=== PATIENT | male | born 1960 | race Caucasian/White ===

== ENCOUNTER 2017-10-02 18:42 | Inpatient (IN) | payer OTHER ==
[~2017-10-02] VITALS: Ht 198.1 cm; Wt 103.6 kg
--- NOTE | ~2017-10-02 | WRIGHTHP ---
[place], [place] PATIENT HISTORY AND PHYSICAL EXAM NAME: LISSA HIGGINS [facility] #: [id number] UNIT #: [id number] ROOM: 421 DOCTOR: MEGAN LAMB MD BIRTHDATE: [birth year] DOS: 10/02/2017 HISTORY OF PRESENT ILLNESS: The patient is 57 years old; patient of Dr. Ovalles, comes in to the Emergency Room with complaints of headaches. The patient was seen in the Emergency Room, was found to have quite elevated blood pressure readings and so was admitted to the hospital. He denies having any chest pains, palpitations, does not have any fever, chills, has not had any headaches, dizziness or lightheadedness this morning. Denies having any abdominal pain, nausea and emesis. He has been taking his blood pressure medications regularly. His only complaint is that he has continued back pain this morning. The patient states that he bent over a few days ago and tried to straighten up and developed acute worsening of his pain and he thinks that his blood pressure was elevated because of the pain. PAST MEDICAL HISTORY: Significant for: 1. Hypertension. 2. Moderate nicotine abuse. 3. Chronic low back pain. 4. Lumbar laminectomy for degenerative spinal stenosis. MEDICATIONS: He is on are vitamin D 2000 units daily, Greeley 7.5 q.i.d., Requip 1 mg at bedtime, lisinopril and hydrochlorothiazide 1 tablet twice a day. SOCIAL HISTORY: Smoker of about half to 1 pack of cigarettes a day. Denies using any alcohol. Lives at home. PHYSICAL EXAMINATION: GENERAL: He is awake and alert and oriented, uncomfortable because of back pain. VITAL SIGNS: Blood pressure is 160/90, pulse of 70, respirations 20, temperature 97.6. LUNGS: Clear. HEART: Regular. ABDOMEN: Obese, soft, nontender. EXTREMITIES: Without any edema. He is able to ambulate without any problems. LABORATORY DATA: White cell count is normal, hemoglobin and hematocrit normal, platelets normal. Comprehensive: Glucose 180, BUN 29, creatinine 1.48, sodium 137, potassium 4.3. Chest x-ray shows atelectasis. ASSESSMENT AND PLAN: 1. The patient comes in with complaints of headaches, was found to have elevated blood pressure in the Emergency Room, uncontrolled hypertension was noted. The patient was admitted. Amlodipine was added to home medicines, pressure is much improved this morning. 2. Chronic low back pain. Continue Greeley, add gabapentin for neurogenic claudication. 3. Moderate nicotine abuse, advised against smoking. [place], [place] PATIENT HISTORY AND PHYSICAL EXAM NAME: LISSA HIGGINS UNIT #: [id number] ROOM: 421 DOCTOR: MEGAN LAMB MD BIRTHDATE: [birth year] 4. History of dizziness. The patient would benefit from a carotid Doppler. Unfortunately, we cannot do one here because it is the weekend and they do not do a Doppler on a weekend. The patient's CT scan of the head was negative. 5. Chest x-ray showing atelectasis, but the patient clinically does not have any complaints of cough and shortness of breath, would benefit from a CT of the chest as an outpatient because he is a heavy smoker. 6. Elevated blood sugar readings are noted. The patient needs to have hemoglobin A1c before he goes home and if it is high, we need to consider him as a new onset diabetic and undergo treatment. MEGAN LAMB MD CM:HISPHYS:PATIENT HISTORY AND PHYSICAL EXAMINATION 6 4 MEGAN LAMB MD 10/03/1746 interface
[~2017-10-02 18:42] MED LIST: AUGMENTIN 875 M1 TA1 PO; BROMFED DM COU118 M1 PO; CATAFLAM50 MG PO; CIPROFLOXACIN500 MG PO; CLONIDINE0.1 MG; CYCLOBENZAPRINE10 MG PO; FLEXERIL5 MG PO; HYDROCODONE BIT1 T11 PO; LISINOPRIL/HCTZ1 TA3 PO; MEDROL DOSEPAK4 MG PO; NORFLEX100 MG PO; ORPHENADRINE C100 M1 PO; PERCOCET 325 MG1 TA7 PO; PRAVACHOL40 MG PO; PREDNISONE10 MG PO; ROBAXIN750 MG PO; SYMBICORT1 AE1 IH; VICO75300 PO
[2017-10-02 18:45] VITALS: BP 178/115
[2017-10-02 19:00] VITALS: BP 200/100
[2017-10-02 19:33] LABS: BASO # 0.1 10*3/uL (0.0-0.1); BASO % 1.3 % (0.0-1.0); EOS # 0.2 10*3/uL (0.0-0.4); EOS % 1.6 % (1.0-4.0); HEMATOCRIT 50.6 % (42.0-52.0); LYMPH # 2.3 10*3/uL (1.3-4.4); LYMPH % 21.6 % (27.0-41.0); MEAN CELL VOLUME 88.2 fl (80.0-94.0); MEAN CORPUSCULAR HGB 29.6 pg (27.0-31.0); MEAN CORPUSCULAR HGB CONC 33.6 g/dl (33.0-37.0); MEAN PLATELET VOLUME 9.9 fl (9.6-12.3); MONO # 0.7 10*3/uL (0.1-1.0); MONO % 6.8 % (3.0-9.0); NEUT # 7.1 10*3/uL (2.3-7.9); NEUT % 67.6 % (47.0-73.0); PLATELET COUNT AUTOMATED 275 10*3/uL (130-400); RED BLOOD COUNT 5.74 10*6/uL (4.50-5.90); RED CELL DISTRI WIDTH 15.9 % (0-14.5); WHITE BLOOD COUNT 10.5 10*3/uL (4.8-10.8)
[2017-10-02 19:40] VITALS: BP 142/90
[2017-10-02 19:50] LABS: ALBUMIN 3.8 gm/dl (3.1-4.5); ALKALINE PHOSPHATASE 111 U/L (45-117); BUN 29 mg/dl (7-24); CHLORIDE 103 mmol/L (98-107); CREATININE 1.48 mg/dL (0.70-1.30); POTASSIUM 4.3 mmol/L (3.5-5.1); SGOT/AST 34 IU/L (3-35); SGPT/ALT 50 U/L (12-78); SODIUM 137 mmol/L (136-145); TOTAL PROTEIN 7.3 gm/dL (6.4-8.2)
[2017-10-02 19:51] LABS: TROPONIN I < 0.015 ng/ml (<0.045)
[2017-10-02 21:59] LABS: BILIRUBIN NEGATIVE (NEGATIVE); BLOOD NEGATIVE (NEGATIVE); CLARITY CLEAR (CLEAR); COLOR YELLOW (YELLOW); GLUCOSE NEGATIVE (NEGATIVE); KETONE NEGATIVE (NEGATIVE); LEUKO ESTERASE NEGATIVE (NEGATIVE); NITRITE NEGATIVE (NEGATIVE); PH 5.5 (5.0-9.0); SPECIFIC GRAVITY 1.025 (1.005-1.030); UROBILINOGEN 0.2 E.U./dl (0.2-1.0)
[2017-10-02 22:07] LABS: BACTERIA TRACE; EPITHELIAL CELLS 0-2; MUCOUS 1+; RBC 0-2 rbc/hpf (0-2)
[2017-10-02 22:10] LABS: URINE AMPHETAMINES < 1000 (1000ng/ml); URINE BARBITURATES < 200 (200ng/ml); URINE BENZODIAZEPINES < 200 (200ng/ml); URINE CANNABINOIDS (THC) < 50 (50ng/ml); URINE COCAINE < 300 (300ng/ml); URINE METHADONE < 300 (300ng/ml); URINE OPIATES > 300 (300ng/ml)
[2017-10-02 22:11] LABS: URINE PHENCYCLIDINE < 25 (25ng/ml)
[2017-10-02 22:27] VITALS: BP 169/103
[2017-10-02 22:30] VITALS: BP 162/98
[2017-10-02] MEDS ORDERED: ROPINIROLE HYDRO1 MG PO (23:05)
[2017-10-02] MEDS ORDERED: VITAMIN D-32000 UNI1 PO (23:05)
[2017-10-03] MEDS ORDERED: NORCO 7.5-3251 EACH PO (00:39)
[2017-10-03] MEDS ORDERED: VITAMIN D32000 UNI1 PO (00:44)
[2017-10-03] MEDS ORDERED: GABAPENTIN100 M2 PO (08:48)
[2017-10-03] MEDS ORDERED: AMLODIPINE BESYL5 MG PO (08:48)
== END 2017-10-03 10:13 | disposition home or self-care (01) | DRG 639 ==
LOC: ED 18:42 → EDHOLD 21:34 → 4E 21:46
PROVIDERS: Emergency Medicine Emergency Medical Services; ADMIT Internal Medicine
DX: E11.65 Type 2 diabetes mellitus with hyperglycemia (principal); F17.210 Nicotine dependence, cigarettes, uncomplicated; I10 Essential (primary) hypertension; G89.29 Other chronic pain; M54.5 Low back pain; Z71.6 Tobacco abuse counseling

== ENCOUNTER 2018-01-17 18:20 | Emergency (ER) | payer OTHER ==
[~2018-01-17] VITALS: Ht 198.1 cm; Wt 100.2 kg
[~2018-01-17 18:20] MED LIST changes: +AMLODIPINE BESYL5 MG PO; +GABAPENTIN100 M2 PO; +NORCO 7.5-3251 EACH PO; +ROPINIROLE HYDRO1 MG PO; +VITAMIN D-32000 UNI1 PO; +VITAMIN D32000 UNI1 PO
[2018-01-17 18:24] VITALS: BP 116/96
[2018-01-17 19:16] LABS: BASO # 0.2 10*3/uL (0.0-0.1); BASO % 1.5 % (0.0-1.0); EOS # 0.1 10*3/uL (0.0-0.4); EOS % 0.8 % (1.0-4.0); HEMATOCRIT 54.5 % (42.0-52.0); HEMOGLOBIN 18.6 g/dl (14.0-18.0); LYMPH # 2.4 10*3/uL (1.3-4.4); LYMPH % 20.6 % (27.0-41.0); MEAN CELL VOLUME 87.2 fl (80.0-94.0); MEAN CORPUSCULAR HGB 29.8 pg (27.0-31.0); MEAN CORPUSCULAR HGB CONC 34.1 g/dl (33.0-37.0); MONO % 8.5 % (3.0-9.0); NEUT # 7.7 10*3/uL (2.3-7.9); NEUT % 66.1 % (47.0-73.0); PLATELET COUNT AUTOMATED 285 10*3/uL (130-400); RED BLOOD COUNT 6.25 10*6/uL (4.50-5.90); RED CELL DISTRI WIDTH 16.9 % (0-14.5); WHITE BLOOD COUNT 11.7 10*3/uL (4.8-10.8)
[2018-01-17 19:26] LABS: ACT PARTIAL THROMBO TIME 25.5 SECONDS (20.8-31.5)
[2018-01-17 19:31] LABS: CREATININE 1.5 mg/dL (0.70-1.30); POTASSIUM 3.7 mmol/L (3.5-5.1); TOTAL PROTEIN 7.6 gm/dL (6.4-8.2)
== END 2018-01-17 20:04 | disposition short-term general hospital (02) ==
LOC: ED 18:20
PROVIDERS: Nurse Practitioner Family
DX: M62.262 Nontraumatic ischemic infarction of muscle, left lower leg (principal); I16.1 Hypertensive emergency; F17.200 Nicotine dependence, unspecified, uncomplicated; Z79.899 Other long term (current) drug therapy

== ENCOUNTER 2018-02-03 11:35 | Emergency (ER) | payer OTHER ==
[~2018-02-03] VITALS: Ht 198.1 cm; Wt 100.2 kg
[2018-02-03 12:24] LABS: BASO # 0.2 10*3/uL (0.0-0.1); BASO % 1.6 % (0.0-1.0); EOS # 0.2 10*3/uL (0.0-0.4); EOS % 1.7 % (1.0-4.0); HEMATOCRIT 41.9 % (42.0-52.0); HEMOGLOBIN 14.1 g/dl (14.0-18.0); LYMPH # 2.3 10*3/uL (1.3-4.4); LYMPH % 18.2 % (27.0-41.0); MEAN CORPUSCULAR HGB 29.9 pg (27.0-31.0); MEAN CORPUSCULAR HGB CONC 33.7 g/dl (33.0-37.0); MEAN PLATELET VOLUME 9.6 fl (9.6-12.3); MONO % 8.2 % (3.0-9.0); NEUT # 8.6 10*3/uL (2.3-7.9); NEUT % 68.4 % (47.0-73.0); PLATELET COUNT AUTOMATED 493 10*3/uL (130-400); RED BLOOD COUNT 4.71 10*6/uL (4.50-5.90); RED CELL DISTRI WIDTH 15.4 % (0-14.5); WHITE BLOOD COUNT 12.5 10*3/uL (4.8-10.8)
[2018-02-03 12:32] LABS: ACT PARTIAL THROMBO TIME 27.7 SECONDS (20.8-31.5); INTERNATIONAL NORM RATIO 1.3 (2.0-3.5)
[2018-02-03 12:35] VITALS: BP 136/70
[2018-02-03 12:40] LABS: ALBUMIN 3.6 gm/dl (3.1-4.5); ALKALINE PHOSPHATASE 114 U/L (45-117); BUN 17 mg/dl (7-24); CHLORIDE 100 mmol/L (98-107); CREATININE 1.32 mg/dL (0.70-1.30); POTASSIUM 4.8 mmol/L (3.5-5.1); SGOT/AST 27 IU/L (3-35); SGPT/ALT 34 U/L (12-78); SODIUM 135 mmol/L (136-145); TOTAL PROTEIN 7.7 gm/dL (6.4-8.2)
[2018-02-03 12:42] LABS: TROPONIN I < 0.015 ng/ml (<0.045)
== END 2018-02-03 13:32 | disposition short-term general hospital (02) ==
LOC: ED 11:35
PROVIDERS: Physician Assistant
DX: M79.672 Pain in left foot (principal); Z79.899 Other long term (current) drug therapy

== ENCOUNTER 2018-04-11 11:50 | Emergency (ER) | payer OTHER ==
[~2018-04-11] VITALS: Ht 198.1 cm; Wt 95.3 kg
[2018-04-11 12:12] LABS: BASO # 0.2 10*3/uL (0.0-0.1); EOS # 0.1 10*3/uL (0.0-0.4); EOS % 0.5 % (1.0-4.0); HEMATOCRIT 50.9 % (42.0-52.0); HEMOGLOBIN 16.5 g/dl (14.0-18.0); LYMPH # 2.2 10*3/uL (1.3-4.4); MEAN CELL VOLUME 84.4 fl (80.0-94.0); MEAN CORPUSCULAR HGB 27.4 pg (27.0-31.0); MEAN CORPUSCULAR HGB CONC 32.4 g/dl (33.0-37.0); MEAN PLATELET VOLUME 9.5 fl (9.6-12.3); MONO # 1.1 10*3/uL (0.1-1.0); MONO % 7.2 % (3.0-9.0); NEUT % 75.3 % (47.0-73.0); PLATELET COUNT AUTOMATED 302 10*3/uL (130-400); RED BLOOD COUNT 6.03 10*6/uL (4.50-5.90); RED CELL DISTRI WIDTH 15.9 % (0-14.5); WHITE BLOOD COUNT 14.6 10*3/uL (4.8-10.8)
[2018-04-11 12:21] LABS: ACT PARTIAL THROMBO TIME 23.7 SECONDS (20.8-31.5); INTERNATIONAL NORM RATIO 0.9 (2.0-3.5)
[2018-04-11 12:28] LABS: ALBUMIN 4.2 gm/dl (3.1-4.5); ALKALINE PHOSPHATASE 143 U/L (45-117); BUN 23 mg/dl (7-24); CHLORIDE 102 mmol/L (98-107); CREATININE 1.21 mg/dL (0.70-1.30); LIPASE 190 U/L (73-393); POTASSIUM 4.4 mmol/L (3.5-5.1); SGOT/AST 24 IU/L (3-35); SGPT/ALT 59 U/L (12-78); SODIUM 136 mmol/L (136-145); TOTAL PROTEIN 8.1 gm/dL (6.4-8.2)
[2018-04-11 12:29] LABS: TROPONIN I < 0.015 ng/ml (<0.045)
[2018-04-11 17:25] VITALS: BP 145/85
== END 2018-04-11 17:43 | disposition short-term general hospital (02) ==
LOC: ED 11:50
PROVIDERS: Emergency Medicine
DX: M62.261 Nontraumatic ischemic infarction of muscle, right lower leg (principal); I74.3 Embolism and thrombosis of arteries of the lower extremities; Z79.899 Other long term (current) drug therapy

== ENCOUNTER → 2018-05-06 | Outpatient (CLI) | payer OTHER | END | disposition home or self-care (01) | LOC: WOUNDCARE 10:19 | DX: T81.89XD Other complications of procedures, not elsewhere classified, subsequent encounter (principal); E11.621 Type 2 diabetes mellitus with foot ulcer; L97.512 Non-pressure chronic ulcer of other part of right foot with fat layer exposed; E11.51 Type 2 diabetes mellitus with diabetic peripheral angiopathy without gangrene; Z87.891 Personal history of nicotine dependence; Z96.651 Presence of right artificial knee joint; Z89.612 Acquired absence of left leg above knee; Y83.8 Other surgical procedures as the cause of abnormal reaction of the patient, or of later complication, without mention of misadventure at the time of the procedure ==

== ENCOUNTER 2018-05-11 15:25 | Emergency (ER) | payer OTHER ==
[~2018-05-11] VITALS: Ht 177.8 cm; Wt 77.1 kg
[2018-05-11 17:02] LABS: BASO # 0.2 10*3/uL (0.0-0.1); BASO % 1.1 % (0.0-1.0); EOS # 0.1 10*3/uL (0.0-0.4); EOS % 0.7 % (1.0-4.0); HEMATOCRIT 48.7 % (42.0-52.0); HEMOGLOBIN 15.5 g/dl (14.0-18.0); LYMPH # 2.8 10*3/uL (1.3-4.4); LYMPH % 18.2 % (27.0-41.0); MEAN CELL VOLUME 83.4 fl (80.0-94.0); MEAN CORPUSCULAR HGB 26.5 pg (27.0-31.0); MEAN CORPUSCULAR HGB CONC 31.8 g/dl (33.0-37.0); MEAN PLATELET VOLUME 9.7 fl (9.6-12.3); MONO # 1.2 10*3/uL (0.1-1.0); MONO % 7.5 % (3.0-9.0); NEUT # 10.8 10*3/uL (2.3-7.9); NEUT % 70.6 % (47.0-73.0); PLATELET COUNT AUTOMATED 409 10*3/uL (130-400); RED BLOOD COUNT 5.84 10*6/uL (4.50-5.90); RED CELL DISTRI WIDTH 18.4 % (0-14.5); WHITE BLOOD COUNT 15.4 10*3/uL (4.8-10.8)
[2018-05-11 17:11] LABS: ACT PARTIAL THROMBO TIME 32.3 SECONDS (20.8-31.5); INTERNATIONAL NORM RATIO 1.7 (2.0-3.5)
[2018-05-11 17:16] LABS: ALBUMIN 3.9 gm/dl (3.1-4.5); CREATININE 1.46 mg/dL (0.70-1.30); POTASSIUM 4.1 mmol/L (3.5-5.1); TOTAL PROTEIN 7.9 gm/dL (6.4-8.2)
[2018-05-11 19:29] VITALS: BP 100/69
== END 2018-05-11 19:27 | disposition short-term general hospital (02) ==
LOC: ED 15:25
PROVIDERS: Nurse Practitioner
DX: I70.291 Other atherosclerosis of native arteries of extremities, right leg (principal); I73.89 Other specified peripheral vascular diseases; Z96.651 Presence of right artificial knee joint; Z79.899 Other long term (current) drug therapy

== ENCOUNTER → 2018-05-20 | Outpatient (CLI) | payer OTHER | LOC: WOUNDCARE 02:57 | DX: T81.89XD Other complications of procedures, not elsewhere classified, subsequent encounter (principal); E11.621 Type 2 diabetes mellitus with foot ulcer; L97.512 Non-pressure chronic ulcer of other part of right foot with fat layer exposed; E11.51 Type 2 diabetes mellitus with diabetic peripheral angiopathy without gangrene; Z89.612 Acquired absence of left leg above knee; Z87.891 Personal history of nicotine dependence; Y83.8 Other surgical procedures as the cause of abnormal reaction of the patient, or of later complication, without mention of misadventure at the time of the procedure ==

== ENCOUNTER → 2018-05-25 | Outpatient (CLI) | payer OTHER | END | disposition home or self-care (01) | LOC: WOUNDCARE 08:31 | DX: T81.89XD Other complications of procedures, not elsewhere classified, subsequent encounter (principal); E11.621 Type 2 diabetes mellitus with foot ulcer; L97.512 Non-pressure chronic ulcer of other part of right foot with fat layer exposed; E11.51 Type 2 diabetes mellitus with diabetic peripheral angiopathy without gangrene; Z87.891 Personal history of nicotine dependence; Z96.651 Presence of right artificial knee joint; Z89.612 Acquired absence of left leg above knee; Y83.8 Other surgical procedures as the cause of abnormal reaction of the patient, or of later complication, without mention of misadventure at the time of the procedure ==

== ENCOUNTER → 2018-06-03 | Outpatient (CLI) | payer OTHER | END | disposition home or self-care (01) | LOC: WOUNDCARE 02:08 | DX: T81.89XD Other complications of procedures, not elsewhere classified, subsequent encounter (principal); E11.621 Type 2 diabetes mellitus with foot ulcer; L97.512 Non-pressure chronic ulcer of other part of right foot with fat layer exposed; L84 Corns and callosities; E11.51 Type 2 diabetes mellitus with diabetic peripheral angiopathy without gangrene; Z87.891 Personal history of nicotine dependence; Z89.612 Acquired absence of left leg above knee; Z96.651 Presence of right artificial knee joint; Y83.8 Other surgical procedures as the cause of abnormal reaction of the patient, or of later complication, without mention of misadventure at the time of the procedure ==

== ENCOUNTER → 2018-06-10 | Outpatient (CLI) | payer OTHER | END | disposition home or self-care (01) | LOC: WOUNDCARE 04:05 | DX: T81.89XD Other complications of procedures, not elsewhere classified, subsequent encounter (principal); E11.621 Type 2 diabetes mellitus with foot ulcer; L97.512 Non-pressure chronic ulcer of other part of right foot with fat layer exposed; E11.51 Type 2 diabetes mellitus with diabetic peripheral angiopathy without gangrene; Z87.891 Personal history of nicotine dependence; Z96.651 Presence of right artificial knee joint; Z89.612 Acquired absence of left leg above knee; Y83.8 Other surgical procedures as the cause of abnormal reaction of the patient, or of later complication, without mention of misadventure at the time of the procedure ==

== ENCOUNTER → 2018-06-17 | Outpatient (CLI) | payer OTHER | END | disposition home or self-care (01) | LOC: WOUNDCARE 14:20 | DX: T81.89XD Other complications of procedures, not elsewhere classified, subsequent encounter (principal); E11.621 Type 2 diabetes mellitus with foot ulcer; L97.512 Non-pressure chronic ulcer of other part of right foot with fat layer exposed; E11.51 Type 2 diabetes mellitus with diabetic peripheral angiopathy without gangrene; Z87.891 Personal history of nicotine dependence; Z96.651 Presence of right artificial knee joint; Z89.612 Acquired absence of left leg above knee; Y83.8 Other surgical procedures as the cause of abnormal reaction of the patient, or of later complication, without mention of misadventure at the time of the procedure ==

== ENCOUNTER → 2018-07-20 | Outpatient (CLI) | payer OTHER | END | disposition home or self-care (01) | LOC: WOUNDCARE 07:14 | DX: T81.89XD Other complications of procedures, not elsewhere classified, subsequent encounter (principal); E11.621 Type 2 diabetes mellitus with foot ulcer; L97.512 Non-pressure chronic ulcer of other part of right foot with fat layer exposed; E11.51 Type 2 diabetes mellitus with diabetic peripheral angiopathy without gangrene; Z87.891 Personal history of nicotine dependence; Y83.8 Other surgical procedures as the cause of abnormal reaction of the patient, or of later complication, without mention of misadventure at the time of the procedure ==

== ENCOUNTER → 2018-07-27 | Outpatient (CLI) | payer OTHER | LOC: WOUNDCARE 04:18 | DX: T81.89XD Other complications of procedures, not elsewhere classified, subsequent encounter (principal); E11.621 Type 2 diabetes mellitus with foot ulcer; L97.512 Non-pressure chronic ulcer of other part of right foot with fat layer exposed; E11.51 Type 2 diabetes mellitus with diabetic peripheral angiopathy without gangrene; Z87.891 Personal history of nicotine dependence; Y83.8 Other surgical procedures as the cause of abnormal reaction of the patient, or of later complication, without mention of misadventure at the time of the procedure ==

== ENCOUNTER → 2018-08-03 | Outpatient (CLI) | payer OTHER | END | disposition home or self-care (01) | LOC: WOUNDCARE 00:41 | DX: T81.89XD Other complications of procedures, not elsewhere classified, subsequent encounter (principal); E11.621 Type 2 diabetes mellitus with foot ulcer; L97.512 Non-pressure chronic ulcer of other part of right foot with fat layer exposed; E11.51 Type 2 diabetes mellitus with diabetic peripheral angiopathy without gangrene; Y83.8 Other surgical procedures as the cause of abnormal reaction of the patient, or of later complication, without mention of misadventure at the time of the procedure ==

== ENCOUNTER → 2018-08-11 | Outpatient (CLI) | payer OTHER | END | disposition home or self-care (01) | LOC: WOUNDCARE 00:31 | DX: T81.89XD Other complications of procedures, not elsewhere classified, subsequent encounter (principal); E11.621 Type 2 diabetes mellitus with foot ulcer; L97.512 Non-pressure chronic ulcer of other part of right foot with fat layer exposed; E11.51 Type 2 diabetes mellitus with diabetic peripheral angiopathy without gangrene; Z87.891 Personal history of nicotine dependence; Y83.8 Other surgical procedures as the cause of abnormal reaction of the patient, or of later complication, without mention of misadventure at the time of the procedure ==

== ENCOUNTER → 2018-08-18 | Outpatient (CLI) | payer OTHER | END | disposition home or self-care (01) | LOC: WOUNDCARE 04:48 | DX: T81.89XD Other complications of procedures, not elsewhere classified, subsequent encounter (principal); E11.621 Type 2 diabetes mellitus with foot ulcer; L97.512 Non-pressure chronic ulcer of other part of right foot with fat layer exposed; E11.51 Type 2 diabetes mellitus with diabetic peripheral angiopathy without gangrene; Z87.891 Personal history of nicotine dependence; Y83.8 Other surgical procedures as the cause of abnormal reaction of the patient, or of later complication, without mention of misadventure at the time of the procedure ==

== ENCOUNTER → 2018-09-15 | Outpatient (CLI) | payer OTHER | END | disposition home or self-care (01) | LOC: WOUNDCARE 03:29 | DX: T81.89XD Other complications of procedures, not elsewhere classified, subsequent encounter (principal); E11.621 Type 2 diabetes mellitus with foot ulcer; L97.512 Non-pressure chronic ulcer of other part of right foot with fat layer exposed; L97.811 Non-pressure chronic ulcer of other part of right lower leg limited to breakdown of skin; E11.51 Type 2 diabetes mellitus with diabetic peripheral angiopathy without gangrene; Z87.891 Personal history of nicotine dependence; Z71.6 Tobacco abuse counseling; Y83.8 Other surgical procedures as the cause of abnormal reaction of the patient, or of later complication, without mention of misadventure at the time of the procedure ==

== ENCOUNTER 2018-10-04 18:35 | Emergency (ER) | payer OTHER ==
[~2018-10-04] VITALS: Ht 198.1 cm; Wt 90.7 kg
[2018-10-04 19:46] LABS: BASO # 0.2 10*3/uL (0.0-0.1); BASO % 1.2 % (0.0-1.0); EOS # 0.2 10*3/uL (0.0-0.4); EOS % 1.4 % (1.0-4.0); HEMATOCRIT 49.8 % (42.0-52.0); HEMOGLOBIN 16.5 g/dl (14.0-18.0); LYMPH # 2.3 10*3/uL (1.3-4.4); LYMPH % 17.2 % (27.0-41.0); MEAN CELL VOLUME 83.7 fl (80.0-94.0); MEAN CORPUSCULAR HGB 27.7 pg (27.0-31.0); MEAN CORPUSCULAR HGB CONC 33.1 g/dl (33.0-37.0); MEAN PLATELET VOLUME 9.6 fl (9.6-12.3); MONO # 1.1 10*3/uL (0.1-1.0); MONO % 8.2 % (3.0-9.0); NEUT # 9.6 10*3/uL (2.3-7.9); NEUT % 70.9 % (47.0-73.0); PLATELET COUNT AUTOMATED 352 10*3/uL (130-400); RED BLOOD COUNT 5.95 10*6/uL (4.50-5.90); RED CELL DISTRI WIDTH 17.4 % (0-14.5); WHITE BLOOD COUNT 13.6 10*3/uL (4.8-10.8)
[2018-10-04 20:01] LABS: ALBUMIN 3.6 gm/dl (3.1-4.5); ALKALINE PHOSPHATASE 105 U/L (45-117); BUN 19 mg/dl (7-24); CHLORIDE 105 mmol/L (98-107); CREATININE 1.08 mg/dL (0.70-1.30); POTASSIUM 3.7 mmol/L (3.5-5.1); SGOT/AST 19 IU/L (3-35); SGPT/ALT 32 U/L (12-78); SODIUM 138 mmol/L (136-145); TOTAL PROTEIN 7.5 gm/dL (6.4-8.2)
[2018-10-04 20:47] VITALS: BP 180/116
== END 2018-10-04 21:10 | disposition home or self-care (01) ==
LOC: ED 18:35
PROVIDERS: Internal Medicine
DX: Z48.01 Encounter for change or removal of surgical wound dressing (principal); Z79.899 Other long term (current) drug therapy

== ENCOUNTER → 2018-10-05 | Outpatient (CLI) | payer OTHER | END | disposition home or self-care (01) | LOC: WOUNDCARE 00:01 | DX: T81.89XD Other complications of procedures, not elsewhere classified, subsequent encounter (principal); E11.621 Type 2 diabetes mellitus with foot ulcer; L97.512 Non-pressure chronic ulcer of other part of right foot with fat layer exposed; E11.622 Type 2 diabetes mellitus with other skin ulcer; L97.811 Non-pressure chronic ulcer of other part of right lower leg limited to breakdown of skin; E11.51 Type 2 diabetes mellitus with diabetic peripheral angiopathy without gangrene; Z87.891 Personal history of nicotine dependence; Z71.6 Tobacco abuse counseling; Y83.8 Other surgical procedures as the cause of abnormal reaction of the patient, or of later complication, without mention of misadventure at the time of the procedure ==

== ENCOUNTER → 2018-10-20 | Outpatient (CLI) | payer OTHER | END | disposition home or self-care (01) | LOC: WOUNDCARE 04:15 | DX: T81.89XD Other complications of procedures, not elsewhere classified, subsequent encounter (principal); E11.621 Type 2 diabetes mellitus with foot ulcer; L97.512 Non-pressure chronic ulcer of other part of right foot with fat layer exposed; E11.51 Type 2 diabetes mellitus with diabetic peripheral angiopathy without gangrene; L97.818 Non-pressure chronic ulcer of other part of right lower leg with other specified severity; Z87.891 Personal history of nicotine dependence; Y83.8 Other surgical procedures as the cause of abnormal reaction of the patient, or of later complication, without mention of misadventure at the time of the procedure ==

== ENCOUNTER 2020-05-17 19:23 | Emergency (ER) | payer OTHER ==
[~2020-05-17] VITALS: Ht 198.1 cm; Wt 99.8 kg
[2020-05-17 20:01] VITALS: BP 176/96
[2020-05-17 21:00] LABS: BASO # 0.1 10*3/uL (0.0-0.1); EOS # 0.1 10*3/uL (0.0-0.4); EOS % 0.7 % (1.0-4.0); HEMATOCRIT 53.4 % (42.0-52.0); LYMPH # 2.4 10*3/uL (1.3-4.4); LYMPH % 17.6 % (27.0-41.0); MEAN CELL VOLUME 83.7 fl (80.0-94.0); MEAN CORPUSCULAR HGB 27.7 pg (27.0-31.0); MEAN CORPUSCULAR HGB CONC 33.1 g/dl (33.0-37.0); MEAN PLATELET VOLUME 9.7 fl (9.6-12.3); MONO % 7.3 % (3.0-9.0); NEUT # 9.7 10*3/uL (2.3-7.9); NEUT % 72.4 % (47.0-73.0); PLATELET COUNT AUTOMATED 337 10*3/uL (130-400); RED BLOOD COUNT 6.38 10*6/uL (4.50-5.90); RED CELL DISTRI WIDTH 18.4 % (0-14.5); WHITE BLOOD COUNT 13.4 10*3/uL (4.8-10.8)
[2020-05-17 21:13] LABS: ACT PARTIAL THROMBO TIME 58.4 SECONDS (20.0-32.1); INTERNATIONAL NORM RATIO 3.3 (2.0-3.5)
[2020-05-17 21:19] LABS: ALBUMIN 3.6 gm/dl (3.1-4.5); ALKALINE PHOSPHATASE 136 U/L (45-117); BUN 23 mg/dl (7-24); CHLORIDE 105 mmol/L (98-107); POTASSIUM 3.9 mmol/L (3.5-5.1); SGOT/AST 21 IU/L (3-35); SGPT/ALT 45 U/L (12-78); SODIUM 136 mmol/L (136-145); TOTAL PROTEIN 7.8 gm/dL (6.4-8.2)
== END 2020-05-17 23:23 | disposition home or self-care (01) ==
LOC: ED 19:23
PROVIDERS: Physician Assistant
DX: M79.89 Other specified soft tissue disorders (principal); I10 Essential (primary) hypertension; Z88.8 Allergy status to other drugs, medicaments and biological substances; Z79.899 Other long term (current) drug therapy

== ENCOUNTER 2020-05-27 16:11 | Emergency (ER) | payer OTHER ==
[~2020-05-27] VITALS: Ht 198.1 cm; Wt 99.8 kg
[2020-05-27 17:41] LABS: BASO # 0.2 10*3/uL (0.0-0.1); BASO % 1.1 % (0.0-1.0); EOS # 0.1 10*3/uL (0.0-0.4); EOS % 0.3 % (1.0-4.0); HEMATOCRIT 51.4 % (42.0-52.0); LYMPH # 1.9 10*3/uL (1.3-4.4); LYMPH % 13.6 % (27.0-41.0); MEAN CELL VOLUME 85.2 fl (80.0-94.0); MEAN CORPUSCULAR HGB 27.2 pg (27.0-31.0); MEAN CORPUSCULAR HGB CONC 31.9 g/dl (33.0-37.0); MEAN PLATELET VOLUME 9.5 fl (9.6-12.3); MONO % 6.8 % (3.0-9.0); NEUT % 77.2 % (47.0-73.0); PLATELET COUNT AUTOMATED 345 10*3/uL (130-400); RED BLOOD COUNT 6.03 10*6/uL (4.50-5.90); RED CELL DISTRI WIDTH 18.6 % (0-14.5); WHITE BLOOD COUNT 14.3 10*3/uL (4.8-10.8)
[2020-05-27 17:54] LABS: ACT PARTIAL THROMBO TIME 52.3 SECONDS (20.0-32.1); INTERNATIONAL NORM RATIO 2.6 (2.0-3.5)
[2020-05-27 17:55] LABS: ALBUMIN 3.5 gm/dl (3.1-4.5); ALKALINE PHOSPHATASE 129 U/L (45-117); BUN 20 mg/dl (7-24); CHLORIDE 106 mmol/L (98-107); CREATININE 1.06 mg/dL (0.70-1.30); POTASSIUM 3.8 mmol/L (3.5-5.1); SGOT/AST 12 IU/L (3-35); SGPT/ALT 31 U/L (12-78); SODIUM 137 mmol/L (136-145); TOTAL PROTEIN 7.4 gm/dL (6.4-8.2)
[2020-05-27 19:05] VITALS: BP 162/92
== END 2020-05-27 21:05 | disposition short-term general hospital (02) ==
LOC: ED 16:11
PROVIDERS: Nurse Practitioner Family
DX: I77.1 Stricture of artery (principal); I10 Essential (primary) hypertension; Z88.8 Allergy status to other drugs, medicaments and biological substances; Z79.899 Other long term (current) drug therapy

== ENCOUNTER 2020-07-14 17:15 | Inpatient (IN) | payer OTHER ==
[~2020-07-14] VITALS: Ht 198.1 cm; Wt 83.7 kg
[2020-07-14 17:30] VITALS: BP 178/102
[2020-07-14 17:43] LABS: BASO # 0.1 10*3/uL (0.0-0.1); BASO % 0.8 % (0.0-1.0); EOS # 0.2 10*3/uL (0.0-0.4); EOS % 1.5 % (1.0-4.0); HEMATOCRIT 42.9 % (42.0-52.0); LYMPH # 2.1 10*3/uL (1.3-4.4); LYMPH % 15.9 % (27.0-41.0); MEAN CELL VOLUME 83.3 fl (80.0-94.0); MEAN CORPUSCULAR HGB 26.2 pg (27.0-31.0); MEAN CORPUSCULAR HGB CONC 31.5 g/dl (33.0-37.0); MEAN PLATELET VOLUME 9.6 fl (9.6-12.3); MONO # 1.1 10*3/uL (0.1-1.0); MONO % 8.3 % (3.0-9.0); NEUT # 9.6 10*3/uL (2.3-7.9); NEUT % 72.7 % (47.0-73.0); PLATELET COUNT AUTOMATED 473 10*3/uL (130-400); RED BLOOD COUNT 5.15 10*6/uL (4.50-5.90); RED CELL DISTRI WIDTH 16.4 % (0-14.5); WHITE BLOOD COUNT 13.2 10*3/uL (4.8-10.8)
[2020-07-14 17:54] LABS: ACT PARTIAL THROMBO TIME 43.9 SECONDS (20.0-32.1); INTERNATIONAL NORM RATIO 1.8 (2.0-3.5)
[2020-07-14 17:58] LABS: ALBUMIN 3.5 gm/dl (3.1-4.5); ALKALINE PHOSPHATASE 140 U/L (45-117); BUN 14 mg/dl (7-24); CHLORIDE 104 mmol/L (98-107); CREATININE 0.98 mg/dL (0.70-1.30); LIPASE 118 U/L (73-393); POTASSIUM 4.1 mmol/L (3.5-5.1); SGOT/AST 18 IU/L (3-35); SGPT/ALT 36 U/L (12-78); SODIUM 137 mmol/L (136-145); TOTAL PROTEIN 7.6 gm/dL (6.4-8.2)
[2020-07-14 18:01] LABS: TROPONIN I 0.397 ng/ml (<0.045)
[2020-07-14 19:12] VITALS: BP 178/96
--- NOTE | 2020-07-14 19:36 | NUR ---
SPOKE WITH PATIENT DAUGHTER, ERIK AT THIS TIME. NURSE TO NURSE GIVEN TO THIS RN AT THIS TIME.
--- NOTE | 2020-07-14 20:25 | NUR ---
WOUND PHOTOS OBTAINED AT THIS TIME. PATIENT HAS A COUPLE SMALL SCABS NOTED TO ARM, NOTHING OPEN NOTED. PATIENT HAS RED BLOTCHY AREAS NOTED TO BILATERAL UPPER EXTREMITIES, NO OPEN AREAS NOTED. PER PATIENT ARMS GET LIKE THAT WHEN HE GETS OVER HEATED.
[2020-07-14 20:40] VITALS: BP 156/98
[2020-07-14 21:00] VITALS: BP 160/110
--- NOTE | 2020-07-14 21:00 | NUR ---
A 60, admitted to , under the services of Dr. CALEB CASTRO,[place] with a diagnosis of NSTEMI. Chief complaint is HEADACHE, MULTIPLE COMPLAINTS. Patient arrived via stretcher from ER. Monitor applied. Initial assessment completed. Vital signs taken and recorded. DR. CALEB CASTRO,[place] notified of admission to the unit. Orders received. See assessment for past medical history, medications and allergies. Patient and/or family oriented to unit. [address] visitation policy reviewed. Clothing/patient valuable form completed. BILLIE JOHNSON
--- NOTE | 2020-07-14 21:15 | NUR ---
NOTIFIED DR ELLIS THAT PATIENT'S BLOOD PRESSURE WAS 160/110. HE HAD ME GO OVER HIS HOME MEDICATION LIST AND TOLD ME TO CONTINUE ALL OF THEM AND GIVE THE PATIENT HIS LISINOPRIL. OTHER ORDERS RECEIVED AND PUT IN.
--- NOTE | 2020-07-14 21:20 | NUR ---
MEASURED AND RECORDED PATIENT'S WOUNDS. I ASKED IF HE COULD TURN OVER SO THAT I COULD CHECK HIS BACK AND BUTTOCKS FOR WOUNDS. ME AND ANOTHER NURSE HELPED TURN HIM AND HE STATED "THAT'S ENOUGH" AND WOULD NOT ALLOW US TO TURN HIM ANY FURTHER. I DID NOT SEE ANY WOUNDS ON HIS BACK AND HIS BUTTOCKS WAS BLANCHABLE FROM WHAT I WAS ABLE TO SEE. PATIENT DID NOT ALLOW ME TO FULL TURN HIM ENOUGH TO VIEW ENTIRE BUTTOCKS AREA.
[2020-07-14] MEDS ORDERED: LISINOPRIL5 MG PO (21:23)
[2020-07-14] MEDS ORDERED: METFORMIN HYDR500 MG PO (21:24)
[2020-07-14] MEDS ORDERED: WARFARIN SOD5 MG PO (21:25)
[2020-07-14] MEDS ORDERED: NEURONTIN300 MG PO (21:25)
[2020-07-14] MEDS ORDERED: PERCOCET 7.5-31 EACH PO (21:39)
--- NOTE | 2020-07-14 23:33 | NUR ---
PERCOCET GIVEN PER PATIENT REQUEST FOR COMPAINTS OF PHANTOM LIMB PAIN IN LEFT LEG AND HEADACHE RATED 9/10. WILL ASSESS EFFECTIVENESS.
--- NOTE | 2020-07-14 23:44 | NUR ---
NOTIFIED PATIENT TO LET US KNOW NEXT TIME HE HAS TO URINATE BECAUSE WE NEED TO GET A URINE SAMPLE. PATIENT VOICES UNDERSTANDING.
[2020-07-15] VITALS: BP 171/103
--- NOTE | 2020-07-15 00:30 | NUR ---
PERCOCET EFFECTIVE. PATIENT RESTING WITH EYES CLOSED. NO S/S OF DISTRESS NOTED.
[2020-07-15 00:59] VITALS: BP 168/102
[2020-07-15 06:30] VITALS: BP 154/96
[2020-07-15 06:30] LABS: ALBUMIN 3.4 gm/dl (3.1-4.5); BUN 14 mg/dl (7-24); CHLORIDE 102 mmol/L (98-107); CREATININE 0.98 mg/dL (0.70-1.30); POTASSIUM 3.7 mmol/L (3.5-5.1); SGOT/AST 15 IU/L (3-35); SODIUM 136 mmol/L (136-145)
[2020-07-15 06:33] LABS: ALKALINE PHOSPHATASE 133 U/L (45-117); SGPT/ALT 33 U/L (12-78); TOTAL PROTEIN 7.3 gm/dL (6.4-8.2)
--- NOTE | 2020-07-15 06:34 | NUR ---
PERCOCET GIVEN PER PATIENT REQUEST FOR COMPAINTS OF RIGHT KNEE PAIN AND HEADACHE RATED 8/10. WILL ASSESS EFFECTIVENESS.
--- NOTE | 2020-07-15 07:34 | NUR ---
Spoke with Dr. Ovalles regarding recommendations. He states to go ahead and consult podiatry at this time and order boots to right lower extremity. Spoke with podiatry resident she states she is pulling into the parking lot at [place] right now and will be up to see patient.
--- NOTE | 2020-07-15 08:00 | NUR ---
IN TO ROOM. PATIENT ASLEEP BUT AWAKENS EASILY. PT COMPLAINS OF HEADACHE AND NECK PAIN. PT IS MUMBLING BUT SPEECH IS CLEAR WHEN ASKED A QUESTION. RESPIRATIONS ARE EASY AND REGULAR ON ROOM AIR. BED IN LOWEST LOCKED POSITION AND CALL LIGHT WITHIN REACH. PT ABLE TO REPOSITION SELF AND IS ENCOURAGE TO DO SO.
--- NOTE | 2020-07-15 08:06 | NUR ---
Nursing screen received and chart reviewed. Patient admitted for NSTEMI. If patient has a decline in ADLs, transfers, or functional mobility, please send OT orders. Thank you. Rosi Marcum, OTR/L
--- NOTE | 2020-07-15 08:19 | NUR ---
PHYSICAL THERAPY Screen received, pt admitted from home w NSTEMI. Please consult PT if pts functional status declines from baseline. Thank you. Shlomo Laws SPT Ambar Carvajal PT
--- NOTE | 2020-07-15 09:00 | NUR ---
CM in to see patient. He is currently not in his room. Will follow up at a later time.
--- NOTE | 2020-07-15 10:30 | NUR ---
Paper Pattern Inspector in to talk to patient. Patient states lives at home with his girlfriend. There are 0 steps in the home. Physician: Dr. Charly Ovalles [facility]acy: [facility] Home health services: [facility] Patient's level of ADLs: INDEPENDENT Patient has working utilities: yes DME: none Follow-up physician's appointment after d/c: he prefers to make his own follow up appt after discharge Does patient want to access PORTAL?: no Discharge plan discussed with patient. He lives at home with his girlfriend. He states he is independent in his ADLs and ambulation. Discussed home health care services and he states he is supposed to have [facility]. When medically stable he will be discharged to home. He states his girlfriend will provide transportation on discharge. KEVIN KUMAR
[2020-07-15 12:00] VITALS: BP 167/86
[2020-07-15 16:00] VITALS: BP 152/98
--- NOTE | 2020-07-15 16:00 | NUR ---
CRITICAL FINDING CALLED FROM [facility]. FINDINGS CALLED TO DR. ELLIS.
--- NOTE | 2020-07-15 16:40 | NUR ---
PT COMPLAINS OF SEVERE NECK PAIN AND HEADACHE. DR ELLIS NOTIFIED AND ORDERS OBTAINED AND ENTERED.
--- NOTE | 2020-07-15 16:45 | NUR ---
FINDING OF CAROTID ULTRASOUND CALLED TO DR. ELLIS. ORDERS OBTAINED.
--- NOTE | 2020-07-15 17:06 | NUR ---
DR. LAU NOTIFIED OF CONSULT. ORDERS OBTAINED AND ENTERED.
--- NOTE | 2020-07-15 18:01 | NUR ---
IV started left antecubital with #22 protective cath after 1 attempts. Site prepped with Chloroprep. Sterile dressing applied. Patient tolerated procedure well. TAHIRA JOHNSTON
--- NOTE | 2020-07-15 19:41 | NUR ---
ATTEMPTED TO CALL CT IN REGARDS TO PATIENT'S CTA RESULTS. NO ANSWER
--- NOTE | 2020-07-15 19:57 | NUR ---
PATIENT LAYING SUPINE IN BED UPON ENTERING ROOM. PATIENT MOANING AND MUMBLES IN RESPONSE TO QUESTIONS. THIS RN ASKED PATIENT IF HE CAN ANSWER ME IN A FULL SENTENCE, PATIENT MUMBLED "I CAN'T.". LEFT SIDED SUEDE BRUSHER IS WEAK. WHEN ASKED PATIENT TO SMILE, LEFT SIDE OF MOUTH DID NOT RESPOND APPROPRIATELY. LEFT EYE WILL NOT OPEN WHEN ASKED. PUPILS ARE EQUAL AND RESPOND TO LIGHT. PATIENT C/O HEADACHE. SCHEDULED LISINOPRIL GIVEN FOR ELEVATED BP. PATIENT SWALLOWED MEDICATIONS WITHOUT DIFFICULTY. BED ALARM ON, CALL LIGHT IN REACH, BED IN LOW POSITION.
[2020-07-15 20:00] VITALS: BP 158/96
--- NOTE | 2020-07-15 20:02 | NUR ---
STILL AWAITING CALL BACK FROM CT REGARDING CTA RESULTS.
--- NOTE | 2020-07-15 20:24 | NUR ---
PATIENT SET BED ALARM ON. SITTING ON SIDE OF BED ATTEMPTING TO GET UP. HOLDING RIGHT SIDE OF BED C/O SEVERE PAIN. REARRANGED BACK IN BED FOR COMFORT. BED ALARM ON, BED IN LOW POSITION, CALL LIGHT IN REACH
--- NOTE | 2020-07-15 20:25 | NUR ---
PT IN BED MOANING AND C/O BACK OF HEAD PAIN AND NECK PAIN AND SORENESS, RATES PAIN 9 ON PAIN SCALE 0-10. MEDICATED WITH PERCOCET PO PER PRN ORDER, SEE EMAR. CALL LIGHT IN REACH. BED ALARM ON.
--- NOTE | 2020-07-15 20:46 | NUR ---
CALLED DR LAU REGARDING CTA OF THE NECK RESULTS. MADE HIM AWARE OF CT OF THE HEAD STATING FOCAL INFARCT. ALSO MADE HIM AWARE OF THE ARTERIAL US OF THE RIGHT LEG. MADE HIM AWARE OF THE PATIENT C/O SEVERE HEAD AND NECK PAIN, ELEVATED BLOOD PRESSURES, AND LEFT SIDED WEAKNESS. HE STATES "THERE IS NOTHING GOING TO BE ACUTELY DONE WITH THIS PATIENT. HIS NSTEMI NEEDS TREATED FIRST". STATES TO CALL DR HORNE AND THEN CALL HIM BACK.
--- NOTE | 2020-07-15 20:56 | NUR ---
DR BELTRE AWARE OF PATIENT'S CTA RESULTS, DR HORNE'S DICTATION NOTE FROM TODAY, LAB RESULTS, AND PATIENT C/O OF SEVERE HEAD AND NECK PAIN. MADE HIM AWARE THAT DR LAU STATES THAT HE SHOULD HAVE A HEART CATH BEFORE TREATING HIS CAROTIDS. ORDER TAKEN FOR NPO, CBC, BMP, TROP, MAG FOR 5AM. AND 2MG MORPHINE IV NOW AND Q6H PRN.
--- NOTE | 2020-07-15 20:58 | NUR ---
PATIENT MOVED TO ROOM 410 FOR ATTEMPTED TO GET OUT OF BED D/T SEVERE PAIN
--- NOTE | 2020-07-15 21:17 | NUR ---
PERCOCET NOT EFFECTIVE FOR PAIN PER PATIENT
--- NOTE | 2020-07-15 21:28 | NUR ---
PRETTY FROM [facility] CALLED AND STATED THEY COULD NOT CALL IN THE CRITICAL CTA HOURS AGO DUE TO TECHNICHAL DIFFICULTIES. THIS RN MADE HIM AWARE THAT I HAD ALREADY SEEN THE REPORT AND RELAYED IT TO THE DOCTORS.
--- NOTE | 2020-07-15 21:30 | NUR ---
PATIENT IS RESTING IN BED WITH EASY AND REGULAR RESPIRATIONS. BED ALARM ON, BED IN LOWEST POSITION, CALL LIGHT IN REACH
--- NOTE | 2020-07-15 21:37 | NUR ---
CALLED DR ELLIS TO UPDATE HIM ON PATIENT'S CONDITION. MADE HIM AWARE OF ALL LAB AND SCAN RESULTS, SEVERE PAIN, LEFT SIDED WEAKNESS, AND CONSULT'S PLAN OF CARE. HE STATES "I CANNOT MAKE DECISIONS FOR CARDIOLOGY. PLEASE GO OVER THE PATIENT'S CODE STATUS WITH HIM. HE MAY NEED PUT ON HOSPICE". PATIENT IS RESTING COMFORTABLY AT THIS TIME.
--- NOTE | 2020-07-15 22:05 | NUR ---
DR LAU MADE AWARE OF DR CHADWICK BEING MADE AWARE OF CTA RESUTS
--- NOTE | 2020-07-15 23:52 | NUR ---
DR ELLIS AWARE OF PATIENT'S BLOOD PRESSURE. ORDER FOR CATAPRES 0.1 MG NOW
[2020-07-16] VITALS: BP 147/100
[2020-07-16 02:20] VITALS: BP 110/86
--- NOTE | 2020-07-16 03:41 | NUR ---
PATIENT RESTING IN BED WITH NO S/S OF DISTRESS RESPS EASY AND REGULAR. BED ALARM ON, BED IN LOWEST POSITION, CALL LIGHT IN REACH
[2020-07-16 04:27] VITALS: BP 153/76
--- NOTE | 2020-07-16 05:46 | NUR ---
CALLED DR HORNE'S ANSWERING SERVICE IN REGARDS TO CRITICAL TROPONIN. AWAITING CALL BACK
--- NOTE | 2020-07-16 05:51 | NUR ---
DR BELTRE AWARE OF CRITICAL TROPONIN
[2020-07-16 05:55] LABS: BASO # 0.1 10*3/uL (0.0-0.1); BASO % 0.9 % (0.0-1.0); EOS # 0.1 10*3/uL (0.0-0.4); EOS % 0.7 % (1.0-4.0); HEMATOCRIT 43.9 % (42.0-52.0); LYMPH % 15.7 % (27.0-41.0); MEAN CELL VOLUME 81.1 fl (80.0-94.0); MEAN CORPUSCULAR HGB 25.1 pg (27.0-31.0); MEAN PLATELET VOLUME 10.1 fl (9.6-12.3); MONO # 1.1 10*3/uL (0.1-1.0); MONO % 8.7 % (3.0-9.0); NEUT # 9.2 10*3/uL (2.3-7.9); NEUT % 73.1 % (47.0-73.0); PLATELET COUNT AUTOMATED 565 10*3/uL (130-400); RED BLOOD COUNT 5.41 10*6/uL (4.50-5.90); RED CELL DISTRI WIDTH 16.7 % (0-14.5); WHITE BLOOD COUNT 12.6 10*3/uL (4.8-10.8)
[2020-07-16 06:00] LABS: BUN 20 mg/dl (7-24); CHLORIDE 99 mmol/L (98-107); POTASSIUM 3.8 mmol/L (3.5-5.1); SODIUM 134 mmol/L (136-145)
--- NOTE | 2020-07-16 07:43 | NUR ---
Shift chart check completed.
--- NOTE | 2020-07-16 07:44 | NUR ---
Shift chart check completed.
[2020-07-16 08:00] VITALS: BP 130/70
--- NOTE | 2020-07-16 08:15 | NUR ---
SPOKE WITH DR HORNE - SHIRA TO TRANSFER TO [facility]...MORPHINE GIVEN FOR HEADACHE ALONG WITH METOPROLOL & ASPIRIN WITH SIP OF WATER..VSS..O2 @ 2L PLACED BUT PT REFUSING TO WEAR D/T SMELL.. WILL ATTEMPT AGAIN LATER.. PATIENT REFUSING TO ALLOW NURSE TO REMOVE DRESSING AT THIS TIME TO TAKE DC PICTURES - WANTS DOCTOR ONLY TO DO IT..HEP LOCK PATENT X2
--- NOTE | 2020-07-16 09:47 | NUR ---
DR CALEB AGUIRRE - PODIATRY RESIDENT CAME IN CHANGED DRESSING AND PATIENT ALLOWED PICTURES
--- NOTE | 2020-07-16 10:12 | NUR ---
PT LEFT VIA NUTRIOSO - REPORT CALLED TO [facility]
== END 2020-07-16 10:12 | disposition short-term general hospital (02) | DRG 564 ==
LOC: ED 17:15 → EDHOLD 19:15 → 4E 19:15
PROVIDERS: Emergency Medicine; Internal Medicine Cardiovascular Disease; ADMIT Internal Medicine; ATTEND Internal Medicine
DX: T87.43 Infection of amputation stump, right lower extremity (principal); I63.9 Cerebral infarction, unspecified; I21.4 Non-ST elevation (NSTEMI) myocardial infarction; I65.23 Occlusion and stenosis of bilateral carotid arteries; Y83.5 Amputation of limb(s) as the cause of abnormal reaction of the patient, or of later complication, without mention of misadventure at the time of the procedure; E78.2 Mixed hyperlipidemia; Z96.651 Presence of right artificial knee joint; E11.51 Type 2 diabetes mellitus with diabetic peripheral angiopathy without gangrene; I10 Essential (primary) hypertension; J45.40 Moderate persistent asthma, uncomplicated; E11.42 Type 2 diabetes mellitus with diabetic polyneuropathy; Z91.09 Other allergy status, other than to drugs and biological substances; Z83.3 Family history of diabetes mellitus; Z89.612 Acquired absence of left leg above knee; Z89.431 Acquired absence of right foot; Z79.899 Other long term (current) drug therapy; Z79.01 Long term (current) use of anticoagulants; Y92.89 Other specified places as the place of occurrence of the external cause